=== PATIENT | female | born 1990 ===

== ENCOUNTER → 2018-10-03 | Outpatient (CLI) | payer OTHER ==
[~2018-10-03] MED LIST: HYDR10TA3 PO; MILK1CAP4 PO
--- NOTE | 2018-10-03 10:44 | RADIOLOGY IMAGING REPORT ---
[place]AC[place] [facility] [place] NAME: Janelle Villalpando : 1990 MR: [id number] V: [id number] EXAM DATE: ORDERING PHYSICIAN: LAMONT BONNER TECHNOLOGIST: Location: [facility] Patient: Janelle Villalpando : 1990 Visit/Account:[id number] Date of Sevice: 10/03/2018 US GROIN HISTORY: Palpable area in the right groin Focused examination over the right groin demonstrates a hypoechoic elongated structure measuring 2.4 x 1.5 x 0.9 cm with a central echogenic structure with vascularity compatible with a right groin lymp h node. Several adjacent smaller lymph nodes are seen. No additional abnormalities noted. IMPRESSION: Area of palpable concern corresponds to a right groin lymph node. Report Dictated By: Corby Dorman MD at 10/03/2018 10:35 AM Report E-Signed By: Corby Dorman MD at 10/03/2018 10:40 AM WSN:[email or web address]
== END ==
LOC: US 00:58
PROVIDERS: ATTEND Surgery
DX: R19.09 Other intra-abdominal and pelvic swelling, mass and lump (principal)
CPT/HCPCS: 76705

== ENCOUNTER 2018-12-28 01:06 | Day surgery (SDC) | payer OTHER ==
[2018-12-28] VITALS (7 sets, daily range): BP systolic 98–112; BP diastolic 67–81
[~2018-12-28] VITALS: Ht 154.9 cm; Wt 43.5 kg
[2018-12-28] MEDS ORDERED: LIDOCAINE/SOD BICARB 8.4% SYR ID ONE (11:15)
[2018-12-28] MEDS ORDERED: MIDAZOLAM 2 MG/2 ML VIAL IVP PRN (11:15)
[2018-12-28] MEDS ORDERED: PROPOFOL EMUL(*) 10MG/ML 20 ML 20 ML ONE (11:38)
[2018-12-28] MEDS ORDERED: fentaNYL CITR 100 MCG/2 ML AMP ONE ×2 (11:38→15:12)
[2018-12-28] MEDS ORDERED: LIDOCAINE MPF 1% 5 ML VIAL ONE (11:38)
[2018-12-28] MEDS ORDERED: DEXAMETHASONE SOD PHOS 10MG/ML ONE (11:38)
[2018-12-28] MEDS ORDERED: ONDANSETRON 4 MG/2 ML VIAL ONE (11:38)
[2018-12-28] MEDS ORDERED: KETAMINE HCL 200 MG/20 ML MDV ONE (11:41)
[2018-12-28] MEDS: NORMOSOL R SOLN(*) 1000 ML BAG 1,000 ML IV PRN ×2 (11:57→13:20)
[2018-12-28] MEDS ORDERED: ROPIVACAINE 0.5% 20 ML VIAL ONE ×2 (13:11→13:29)
[2018-12-28] MEDS ORDERED: HALOPERIDOL LACT 5 MG/ML VIAL IM ONE (13:37)
[2018-12-28] MEDS ORDERED: TRAM-420 PO (14:49)
[2018-12-28] MEDS ORDERED: DOCU-202 PO (14:49)
--- NOTE | 2018-12-28 14:52 | Short(Outpt) Discharge Summary ---
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 Departure Discharge to: Home, Self Care Discharge Instructions Home Meds Active Scripts Docusate Sodium (DOCUSATE SODIUM) 100 Mg Capsule, 1 CAP PO BID, #30 CAPSULE 0 Refills Prov:LAMONT BONNER MD 12/28/18 Tramadol Hcl (TRAMADOL HCL) 50 Mg Tablet, 1 TAB PO Q4-6H PRN for PAIN, #20 TAB 0 Refills Prov:LAMONT BONNER MD 12/28/18 Reported Medications Milk Thistle Seed Extract (MILK THISTLE) Unknown Strength Capsule, 300 MG PO BID, CAPSULE 08/18/18 Hydroxyzine Hcl (HYDROXYZINE HCL) Unknown Strength Tablet, 25 MG PO PRN for Anxiety 08/18/18 Follow up Referrals: General Surgery - 01/12/19 @ Surgery, General with LAMONT BONNER MD You have a follow up appointment scheduled with Dr. Bonner on 01/12/19, at 9:30am. Diet: Regular Activity: As Tolerated Special Instructions: You may remove the white surgical dressing on 12/30/18, then you can shower. After showering, leave the incision open to air but leave the steristrips in place until they fall off on their own. Do not immerse the incision for 2 weeks. LAMONT BONNER MD Dec 28, 2018 14:52
--- NOTE | 2018-12-28 14:59 | Post Operative Progress Note ---
Post Operative Progress Note Date: Dec 28, 2018 Time: 14:53 Surgeon: Emory Dictation number: [id number] Anesthesia: LMA by Dr. Davila Pre-Op Diagnosis: Right groin nodule Post-Op Diagnosis: Right groin Canal of Nuck Hydrocele Findings: C/W postop dx. Procedure(s): Right groin exploration with excision of right groin Canal of Nuck Hydrocele Specimen Removed:(May be N/A): Right groin canal of nuck hydrocele Complications: None Fluids: See anesthesia record Estimated Blood Loss: Minimal Date OP Note Dictated: Dec 28, 2018 Time OP Note Dictated: 14:54 LAMONT BONNER MD Dec 28, 2018 14:59
[2018-12-28] MEDS ORDERED: traMADol 50 MG TAB PO ONE (15:45)
--- NOTE | 2018-12-29 01:33 | OPERATIVE REPORT 1 ---
EVENT DATE: December 28, 2018 SURGEON: Froylan Cat MD ANESTHESIOLOGIST: Modesto Davila MD ANESTHESIA: LMA. PREOPERATIVE DIAGNOSIS Right groin nodule. POSTOPERATIVE DIAGNOSIS Right groin nodule canal of Nuck hydrocele. PROCEDURE PERFORMED 1. Right groin exploration. 2. Excision of right canal of Nuck hydrocele. COMPLICATIONS None. CONDITION Stable. BLOOD LOSS Minimal. FINDINGS This patient had a cyst structure that was attached to the peritoneal cavity through a small neck, but I could not get any probes to pass from the cyst into the peritoneal cavity, but it certainly went up into the inguinal canal, and this was consistent with a canal of Nuck hydrocele. SPECIMEN Canal of Nuck hydrocele. INDICATIONS This is a 28-year-old female who presented to my office with a right groin nodule that would get bigger and smaller at various times, and she had had it evaluated near her home in [place], but nobody wanted to remove it, and so I got an ultrasound. The ultrasound indicated this was a lymph node. She was requesting to have it removed for definitive diagnosis. DESCRIPTION OF PROCEDURE The patient was brought to the operating room and placed supine on the operating table. LMA anesthesia was administered, and the right groin was prepped and draped in a sterile fashion. Time-out was completed, and I palpated the mass and made a skin amilcar over this, and I had already previously marked it preop with her confirmation that this was the correct operative site. I then anesthetized the skin over the mass and then made an incision, and then dissected through the dermis and subcutaneous fat, through Yuridia fascia, until I was able to dissect around the mass. The mass appeared to be a cystic structure, so I was very careful, not quite understanding initially what this was, so I dissected it free, but it ended blindly in the groin. But it seemed to have a neck, and that seemed to be attached up to the inguinal canal. I dissected circumferentially around the way around, as high up into the canal as I could get, and made sure there was no bowel or other structures involved, and then I suture ligated the neck with a 3- 0 Vicryl suture ligature. I then amputated the distal portion of the neck and cyst and passed this off the field. I then irrigated and dried the wound and closed the external oblique fascia with interrupted 3-0 Vicryl sutures, and then Yuridia fascia was closed with running 3-0 Vicryl sutures, and then the skin was closed with 4-0 Monocryl running subcuticular sutures. The skin was cleaned and dried and Steri-Strips were applied, followed by a sterile surgical dressing. The patient was then awakened, LMA removed, and she was transferred to the recovery room in stable condition, having tolerated the procedure without any apparent problems. DESIREE
== END 2018-12-28 15:33 | disposition home or self-care (01) ==
LOC: OR 01:06
PROVIDERS: ATTEND Surgery
DX: D18.09 Hemangioma of other sites (principal); R59.0 Localized enlarged lymph nodes; N94.89 Other specified conditions associated with female genital organs and menstrual cycle
CPT/HCPCS: 11422; 36415; 84703; 88305; J1100; J1630; J2001; J2250; J2405; J2704; J2795; J3010; J3490